=== PATIENT | female | born 1950 | race Caucasian/White ===

== ENCOUNTER 2017-03-04 11:58 | Emergency (ER) | payer MEDICAID ==
[2017-06-03 14:52] VITALS: BMI 27.3
== END 2017-03-04 13:55 | disposition home or self-care (01) ==
LOC: D.ER 11:58
DX: K04.7 Periapical abscess without sinus (principal); M79.672 Pain in left foot; M79.671 Pain in right foot

== ENCOUNTER 2017-04-30 14:14 | Emergency (ER) | payer MEDICARE ==
[2017-06-03 14:52] VITALS: BMI 27.3
== END 2017-04-30 16:16 | disposition home or self-care (01) ==
LOC: D.ER 14:14
DX: K02.9 Dental caries, unspecified (principal); K08.89 Other specified disorders of teeth and supporting structures; M79.7 Fibromyalgia; K59.00 Constipation, unspecified

== ENCOUNTER 2017-05-13 03:54 | Emergency (ER) | payer MEDICARE ==
[2017-05-13 04:33] LABS: BASOPHILS 0.3 % (0-2); EOSINOPHILS 3.1 % (0-7); HEMATOCRIT 39.8 % (36.0-48.0); LYMPHOCYTES 22.1 % (15-50); MCH 31.3 pg (26.0-34.0); MCHC 32.7 g/dL (31.0-37.0); MCV 95.9 fL (80.0-100.0); NEUTROPHILS 64.5 % (40-80); PLATELET COUNT 210 10x3/uL (130-400); RBC 4.15 10x6/uL (4.00-5.40); RDW 12.8 % (11.5-14.5); WBC 6.5 10x3/uL (4.8-10.8)
[2017-05-13 04:49] LABS: ALBUMIN 3.4 g/dL (3.4-5.0); ALKALINE PHOSPHATASE 75 U/L (46-116); ALT (SGPT) 15 U/L (10-68); AMYLASE - SERUM 39 U/L (25-115); BILIRUBIN - TOTAL 0.14 mg/dL (0.2-1.3); CALC OSMOLALITY 288 mosm/kg (275-300); CALCIUM 8.7 mg/dL (8.5-10.1); CARBON DIOXIDE 25.2 mmol/L (21.0-32.0); CHLORIDE - SERUM 108 mmol/L (98-107); CREATININE - SERUM 0.8 mg/dL (0.6-1.3); GLUCOSE 141 mg/dL (74-106); LIPASE 126 U/L (73-393); POTASSIUM - SERUM 3.5 mmol/L (3.5-5.1); PROTEIN - SERUM 6.1 g/dL (6.4-8.2); SODIUM 144 mmol/L (136-145); UREA NITROGEN 12 mg/dL (7-18); eGFR NON AFRICAN AMERICAN 76 mL/min (90-120)
[2017-05-13 05:36] LABS: APPEARANCE CLEAR (CLEAR); BACTERIA MANY /hpf (NONE SEEN); BILIRUBIN NEGATIVE (NEGATIVE); COLOR YELLOW (YELLOW); EPITHELIAL CELLS 0-5 /hpf (0-5); GLUCOSE NEGATIVE (NEGATIVE); KETONE NEGATIVE (NEGATIVE); NITRITE POSITIVE (NEGATIVE); PROTEIN NEGATIVE (NEGATIVE); RED CELLS - URINE NONE SEEN /hpf (0-5); SPECIFIC GRAVITY 1.015 (1.005-1.020); UROBILINOGEN NORMAL (NORMAL); WHITE CELLS - URINE 0-5 /hpf (0-5)
[2017-05-13 05:59] LABS: CKMB 1.2 U/L (0.0-3.6); CREATINE KINASE 45 UL (21-215); TROPONIN-I < 0.017 ng/mL (0.000-0.060)
[2017-06-03 14:52] VITALS: BMI 27.3
== END 2017-05-13 06:42 | disposition home or self-care (01) ==
LOC: D.ER 03:54
PROVIDERS: Family Medicine
DX: K21.9 Gastro-esophageal reflux disease without esophagitis (principal); N39.0 Urinary tract infection, site not specified; K59.00 Constipation, unspecified; I45.10 Unspecified right bundle-branch block

== ENCOUNTER 2017-05-23 18:58 | Emergency (ER) | payer MEDICARE ==
[2017-05-23 19:45] LABS: APPEARANCE CLEAR (CLEAR); COLOR YELLOW (YELLOW)
[2017-05-23 19:46] LABS: BILIRUBIN NEGATIVE (NEGATIVE); GLUCOSE NEGATIVE (NEGATIVE); KETONE NEGATIVE (NEGATIVE); NITRITE NEGATIVE (NEGATIVE); PROTEIN TRACE mg/dL (NEGATIVE); UROBILINOGEN NORMAL (NORMAL)
[2017-05-23 19:52] LABS: EPITHELIAL CELLS 0-5 /hpf (0-5); RED CELLS - URINE 0-5 /hpf (0-5); WHITE CELLS - URINE 25-50 /hpf (0-5)
[2017-05-23 19:53] LABS: BACTERIA FEW /hpf (NONE SEEN)
[2017-05-23 20:01] LABS: BASOPHILS 0.1 % (0-2); EOSINOPHILS 2.1 % (0-7); HEMATOCRIT 42.5 % (36.0-48.0); HEMOGLOBIN 13.9 g/dL (12-16); IMMATURE GRANULOCYTES 0.3 % (0-5); LYMPHOCYTES 12.3 % (15-50); MCHC 32.7 g/dL (31.0-37.0); MCV 94.9 fL (80.0-100.0); MEAN PLATELET VOLUME 11.9 fL (7.4-10.4); MONOCYTES 8.9 % (2-11); NEUTROPHILS 76.3 % (40-80); PLATELET COUNT 175 10x3/uL (130-400); RBC 4.48 10x6/uL (4.00-5.40); RDW 12.9 % (11.5-14.5); WBC 11.5 10x3/uL (4.8-10.8)
[2017-05-23 20:17] LABS: ALKALINE PHOSPHATASE 85 U/L (46-116); ALT (SGPT) 14 U/L (10-68); AMYLASE - SERUM 42 U/L (25-115); BILIRUBIN - TOTAL 0.36 mg/dL (0.2-1.3); CALC OSMOLALITY 279 mosm/kg (275-300); CALCIUM 9.4 mg/dL (8.5-10.1); CARBON DIOXIDE 30.8 mmol/L (21.0-32.0); CHLORIDE - SERUM 100 mmol/L (98-107); CREATININE - SERUM 0.8 mg/dL (0.6-1.3); GLUCOSE 123 mg/dL (74-106); LIPASE 111 U/L (73-393); POTASSIUM - SERUM 4.1 mmol/L (3.5-5.1); SODIUM 140 mmol/L (136-145); UREA NITROGEN 13 mg/dL (7-18); eGFR NON AFRICAN AMERICAN 76 mL/min (90-120)
[2017-06-03 14:52] VITALS: BMI 27.3
== END 2017-05-23 21:13 | disposition home or self-care (01) ==
LOC: D.ER 18:58
PROVIDERS: Emergency Medicine
DX: N39.0 Urinary tract infection, site not specified (principal); R10.9 Unspecified abdominal pain; K21.9 Gastro-esophageal reflux disease without esophagitis

== ENCOUNTER 2017-05-27 16:00 | Emergency (ER) | payer MEDICARE ==
[2017-05-27 17:31] LABS: BASOPHILS 0 % (0-2); EOSINOPHILS 0.4 % (0-7); HEMATOCRIT 42.9 % (36.0-48.0); HEMOGLOBIN 14.4 g/dL (12-16); IMMATURE GRANULOCYTES 0.3 % (0-5); MCH 30.6 pg (26.0-34.0); MCHC 33.6 g/dL (31.0-37.0); MCV 91.1 fL (80.0-100.0); MEAN PLATELET VOLUME 11.6 fL (7.4-10.4); MONOCYTES 6.5 % (2-11); NEUTROPHILS 87.8 % (40-80); RBC 4.71 10x6/uL (4.00-5.40); RDW 12.8 % (11.5-14.5); WBC 13.7 10x3/uL (4.8-10.8)
[2017-05-27 17:37] LABS: PLATELET COUNT 211 10x3/uL (130-400)
[2017-05-27 17:46] LABS: ALBUMIN 2.5 g/dL (3.4-5.0); ANION GAP 13.3 mmol/L (8-16); BILIRUBIN - TOTAL 0.5 mg/dL (0.2-1.3); CALCIUM 9.5 mg/dL (8.5-10.1); CARBON DIOXIDE 30.1 mmol/L (21.0-32.0); POTASSIUM - SERUM 3.4 mmol/L (3.5-5.1); PROTEIN - SERUM 7.4 g/dL (6.4-8.2)
[2017-05-27 18:16] LABS: APPEARANCE HAZY (CLEAR); BACTERIA MANY /hpf (NONE SEEN); BILIRUBIN NEGATIVE (NEGATIVE); COLOR BROWN (YELLOW); EPITHELIAL CELLS 0-5 /hpf (0-5); GLUCOSE NEGATIVE (NEGATIVE); KETONE NEGATIVE (NEGATIVE); NITRITE NEGATIVE (NEGATIVE); PROTEIN TRACE mg/dL (NEGATIVE); RED CELLS - URINE 0-5 /hpf (0-5); SPECIFIC GRAVITY 1.015 (1.005-1.020); UROBILINOGEN NORMAL (NORMAL)
[2017-06-03 14:52] VITALS: BMI 27.3
== END 2017-05-27 18:44 | disposition home or self-care (01) ==
LOC: D.ER 16:00
PROVIDERS: Emergency Medicine
DX: N39.0 Urinary tract infection, site not specified (principal); R11.10 Vomiting, unspecified; K21.9 Gastro-esophageal reflux disease without esophagitis

== ENCOUNTER 2017-05-28 17:06 | Emergency (ER) | payer MEDICARE ==
[2017-06-03 14:52] VITALS: BMI 27.3
== END 2017-05-28 18:30 | disposition home or self-care (01) ==
LOC: D.ER 17:06
DX: Z76.5 Malingerer [conscious simulation] (principal); Z59.0 Homelessness; N39.0 Urinary tract infection, site not specified; K21.9 Gastro-esophageal reflux disease without esophagitis

== ENCOUNTER 2017-05-31 14:08 | Inpatient (IN) | payer MEDICARE | END 2017-06-20 10:40 | DRG 885 | LOC: D.ER 14:08 → D.PSYCH 22:37 | DX: F25.0 Schizoaffective disorder, bipolar type (principal); N39.0 Urinary tract infection, site not specified; G30.9 Alzheimer's disease, unspecified; F02.80 Dementia in other diseases classified elsewhere, unspecified severity, without behavioral disturbance, psychotic disturbance, mood disturbance, and anxiety; K21.9 Gastro-esophageal reflux disease without esophagitis; E78.00 Pure hypercholesterolemia, unspecified; I10 Essential (primary) hypertension; G62.9 Polyneuropathy, unspecified; E78.5 Hyperlipidemia, unspecified; F42.9 Obsessive-compulsive disorder, unspecified; K59.00 Constipation, unspecified; B37.3 Candidiasis of vulva and vagina; A60.00 Herpesviral infection of urogenital system, unspecified; E55.9 Vitamin D deficiency, unspecified; F41.8 Other specified anxiety disorders ==

== ENCOUNTER 2018-12-29 14:21 | Inpatient (IN) | payer MEDICARE ==
[~2018-12-29] VITALS: Ht 170.2 cm; Wt 91.9 kg
[~2018-12-29 14:21] MED LIST: ANUSOL-HC 2.5%30 GM RC; ARICEPT5 MG PO; FLORAJEN3 CAPS460 MG PO; LINZESS145 MCG PO; LYRICA75 MG PO; MIRALAX17 GM PO; PEPCID20 MG PO; PERIDEX480 ML PO; PROTONIX40 MG PO; VALTREX500 MG PO; VITAMIN D5000 UNIT PO
[2018-12-29 16:36] VITALS: BP 124/71
[2018-12-29] MEDS ORDERED: VITAMIN B-121000 MCG PO (19:34)
[2018-12-29] MEDS ORDERED: BACLOFEN10 MG PO (19:35)
--- NOTE | 2018-12-29 19:35 | NUR ---
ADMITTED TO [facility] AT [facility] VIA AMBULANCE WITH EMS FROM [facility]. PATIENT IS ABLE TO AMBULATE INDEPENDENTLY. ADMITTED FOR AGITATION AND HITTING OF STAFF, REFUSING REDIRECTION AND TAKING HER MEDICATIONS. CODE STATUS= FULL CODE CODEWORD= CURTIS. SHE HAS A HISTORY OF SCHITZOPHRENIA. WILL CONTINUE TO MONITOR CLOSEY.
[2018-12-29] MEDS ORDERED: CHLOROPHYLL PO (19:38)
[2018-12-29] MEDS ORDERED: VITAMIN D5000 UNIT PO (19:40)
[2018-12-29] MEDS ORDERED: CYMBALTA60 MG PO (19:50)
[2018-12-29] MEDS ORDERED: DIFLUCAN150 MG PO (19:51)
[2018-12-29] MEDS ORDERED: FOLIC ACID1 MG PO (19:54)
[2018-12-29] MEDS ORDERED: CLARITIN5 MG/5 ML PO (19:59)
[2018-12-29] MEDS ORDERED: MELATONIN 3 MG1 TAB PO (19:59)
[2018-12-29] MEDS ORDERED: NEURONTIN600 MG PO (20:00)
[2018-12-29] MEDS ORDERED: OXYBUTYNIN CHLOR5 M1 PO (20:01)
[2018-12-29] MEDS ORDERED: SENNA LAXATIVE8.6 MG PO (20:02)
[2018-12-29] MEDS ORDERED: ULTRAM50 MG PO (20:03)
[2018-12-29] MEDS ORDERED: TRAZODONE HCL150 MG PO (20:04)
[2018-12-29] MEDS ORDERED: ACETAMINOPHEN325 MG PO (20:05)
--- NOTE | 2018-12-29 21:00 | NUR ---
RECEIVED IN HALLWAY. SITTING IN A RECLINING CHAIR WITH PEERS AT HER SIDE. MAKES RUDE COMMENTS AT TIMES. COOPERATIVE WITH CARE. REDIRECT AND REORIENT NEEDED. CONTINUES TO SIT WITH PEERS. CONTINUE PLAN OF CARE
[2018-12-29 21:02] VITALS: BP 126/78
--- NOTE | 2018-12-30 00:53 | NUR ---
PATIENT STATES ANXIETY. REQUEST SOMETHING TO RELAX. PRN ATIVAN 0.5 MG PO GIVEN FOR ANXIETY.
[2018-12-30 06:00] LABS: BASOPHILS 0.3 % (0-2); EOSINOPHILS 2.4 % (0-7); HEMOGLOBIN 12.8 g/dL (12-16); IMMATURE GRANULOCYTES 0.1 % (0-5); LYMPHOCYTES 24.6 % (15-50); MCH 31.1 pg (26.0-34.0); MCHC 33.7 g/dL (31.0-37.0); MCV 92.2 fL (80.0-100.0); MONOCYTES 10.5 % (2-11); NEUTROPHILS 62.1 % (40-80); RBC 4.12 10x6/uL (4.00-5.40); RDW 13.3 % (11.5-14.5); WBC 7.4 10x3/uL (4.8-10.8)
[2018-12-30 06:08] LABS: PLATELET COUNT 195 10x3/uL (130-400)
[2018-12-30 06:50] LABS: ALBUMIN 3.3 g/dL (3.4-5.0); ALKALINE PHOSPHATASE 88 U/L (46-116); ALT (SGPT) 26 U/L (10-68); BILIRUBIN - TOTAL 0.39 mg/dL (0.2-1.3); CALC OSMOLALITY 289 mosm/kg (275-300); CALCIUM 9.1 mg/dL (8.5-10.1); CARBON DIOXIDE 29.2 mmol/L (21.0-32.0); CHLORIDE - SERUM 107 mmol/L (98-107); CHOL - HDL RATIO 4.8 ratio (2.3-4.1); CHOLESTEROL, TOTAL 188 mg/dL (0-200); CREATININE - SERUM 0.9 mg/dL (0.6-1.3); GLUCOSE 101 mg/dL (74-106); HDL CHOLESTEROL 39 mg/dL (32-96); LDL CHOLESTEROL 131 mg/dL (0-100); LDL-HDL RATIO 3.4 ratio (1.5-3.5); POTASSIUM - SERUM 3.9 mmol/L (3.5-5.1); PROTEIN - SERUM 6.7 g/dL (6.4-8.2); SODIUM 144 mmol/L (136-145); THYROID STIMULATING HORMONE 1.37 uIU/mL (0.36-3.74); TRIGLYCERIDE 91 mg/dL (30-200); UREA NITROGEN 21 mg/dL (7-18); eGFR NON AFRICAN AMERICAN 66 mL/min (90-120)
[2018-12-30 08:30] VITALS: BP 96/56
[2018-12-30 10:48] VITALS: BMI 30.1
[2018-12-30 12:07] VITALS: BP 136/67; Ht 170.2 cm; Wt 91.9 kg
--- NOTE | 2018-12-30 18:24 | NUR ---
IS ORIENTED AND COMPLIANT WITH STAFF.VERY NEEDY.COMPLIANT WITH MEDS.VISITS WITH PEERS.WILL CONTINUE WITH CURRENT PLAN OF CARE,MONITOR FOR CHANGES AND SAFETY.
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
[2018-12-30 20:46] VITALS: BP 151/87
--- NOTE | 2018-12-30 21:00 | NUR ---
PATIENT TOLERATED PRN WELL. RESTING, WILL MONITOR AND FOLLOW POC
[2018-12-31 07:14] LABS: RAPID PLASMA REAGIN Non Reactive (Non Reactive)
[2018-12-31 08:30] VITALS: BP 125/80
--- NOTE | 2018-12-31 10:54 | NUR ---
B) The patient is awake, but she keeps dozing off and she has made multiple requests this am. She interacts well with staff and peers. She says she is here to get her meds adjusted. I) Provide prescribed meds. R) The patient is compliant with meds and unit milieu. She has not shown any aggression this am. P) Continue POC.
--- NOTE | 2018-12-31 13:07 | NUR ---
TEAM TREATMENT REVIEW DIET: Regular diet PO INTAKE: 57% x 3 meals, 100% x 1 snack WT: 192 lbs BM: x 1 on 12/30 MEDS: Sennokot LABS: BUN- 21(H), LDL- 131(H), Vit B12- 1164(H) GOALS: PO intake > 75%, BM q 3 days, stable wt Will continue to monitor closely Clinical Dietitian following
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
[2018-12-31 20:48] VITALS: BP 105/66
--- NOTE | 2018-12-31 23:01 | NUR ---
B) Patient is alert and oriented to person and place, and time, calm and cooperative this shift, I) Administered scheduled medications as ordered, monitored for safety R) medication compliant, follows unit milieu, social with peers and staff P) Continue plan of care.
[2019-01-01 08:51] VITALS: BP 115/55
--- NOTE | 2019-01-01 10:54 | NUR ---
PATIENT IS DOZING OFF IN CHAIR. PT IS ORIENTED TO PERSON, PLACE AND TIME. CONFUSION NOTED AT TIMES. INTERACTS WITH STAFF AND PEERS. PT IS CALM AND COOPERATIVE AT THIS. NO AGGERSSION NOTED AT THIS TIME. COMPLIANT WITH MEDICATIONS, ASSESSMENTS AND VITALS. WILL CONT PLAN OF CARE.
--- NOTE | 2019-01-01 16:06 | PN ---
PATIENT:CYRIL CEJA MEDICAL RECORD: [id number] LOCATION:[facility] ADMISSION DATE: 12/29/18 PROGRESS NOTE DATE OF SERVICE: 12/31/2018 SUBJECTIVE: The patient's case was discussed with staff. She has no new complaint. OBJECTIVE: The patient denies that she would seek to harm herself or others. She is tolerating her medicines well. ASSESSMENT: No change in diagnoses. PLAN: The patient is taking Neurontin for her neuropathy, which continues to bother her. She is taking a reasonable dose of Cymbalta as well. I am going to start her on a low dose of Trilafon to assist with her thought disorganization and paranoia. She will be monitored for clinical changes associated with it. Her long-term prognosis is guarded. TRANSINT:[id number] Voice Confirmation ID: [id number] DOCUMENT ID: [id number] JULIETH AGUILA MD at 1606 CC: [id number] DICTATION DATE: 12/31/18 1533 CLAY MOLDER: 12/31/18 1700 ADM IN [place] [id number] [place] [address]
[2019-01-01 20:00] VITALS: BP 98/47
--- NOTE | 2019-01-02 04:25 | NUR ---
B) Patient is alert and oriented to person, place, and time, calm and cooperative this shift, I) Administered scheduled medications as ordered, PRN Tylenol 650 mg PO given at 04:01 for pain R) Mediation compliant, resting now quietly in her bed, P) Continue plan of care.
--- NOTE | 2019-01-02 09:52 | NUR ---
RECEIVED PT IN DINING ROOM FOR B'FAST, ALERT, CALM, COOPERATIVE, AGREEABLE WITH STAFF SUGGESTIONS. MEDS ADMIN PER ORDERS WITH COMPLETE MED COMPLIANCE NOTED. CONT POC DIRECTED.
[2019-01-02 10:41] VITALS: BP 119/67
--- NOTE | 2019-01-02 12:25 | PN ---
PATIENT:CYRIL CEJA MEDICAL RECORD: [id number] LOCATION:[facility] ADMISSION DATE: 12/29/18 PROGRESS NOTE DATE OF SERVICE: 01/01/2019 SUBJECTIVE: The patient's case was discussed with staff. She has no new complaint. OBJECTIVE: The patient is in good behavioral control. She has had no aggressive behaviors. She is tolerating her medicines well. ASSESSMENT: No change in diagnoses. PLAN: Supportive and educational interventions were made. Long-term prognosis is guarded. TRANSINT:[id number] Voice Confirmation ID: [id number] DOCUMENT ID: [id number] JULIETH AGUILA MD at 1225 CC: [id number] DICTATION DATE: 01/01/19 170 CONTRACT FORESTER: 01/01/19 2204 ADM IN [place] [place] [address]
[2019-01-02 20:16] VITALS: BP 143/76
--- NOTE | 2019-01-02 23:22 | NUR ---
B.) PT IS ALERT AND ORIENTED X'S 4. PT IS ANXIOUS AT TIMES. SHE IS PLEASANT WITH STAFF AND PEERS. I.) PROVIDED PM MEDICATIONS. R.) COMPLIANT WITH ALL MEDICATIONS. P.) CONTINUE PLAN OF CARE
--- NOTE | 2019-01-02 23:31 | NUR ---
PT CLAIMS SHE IS FEELING ANXIOUS AND RESTLESS. SHE REQUEST PRN ATIVAN 0.5MG IM PRESCRIBED.
[2019-01-03 07:00] VITALS: BP 139/83
--- NOTE | 2019-01-03 16:34 | NUR ---
RECEIVED PT IN DINING ROOM FOR B'FAST, ALERT, CALM, COOPERATIVE. MEDS ADMIN PER ORDERS WITH COMPLETE MED COMPLIANCE NOTED. CONT POC DIRECTED.
[2019-01-03 20:00] VITALS: BP 125/73
--- NOTE | 2019-01-03 22:56 | NUR ---
RECEIVED IN DAYROOM. SITTING IN CHAIR WITH PEERS AT HER SIDE. NO SIGNS OF AGGRESSION. CALM AND COOPERATIVE WITH CARE AND ASSESSMENT. REDIRECT AND REORIENT NEEDED. RESTING IN BED WITH EYES CLOSED AT THIS TIME. CONTINUE PLAN OF CARE
[2019-01-04 08:00] VITALS: BP 113/64
--- NOTE | 2019-01-04 10:16 | PN ---
PATIENT:CYRIL CEJA MEDICAL RECORD: [id number] LOCATION:[facility] ADMISSION DATE: 12/29/18 PROGRESS NOTE DATE OF SERVICE: 01/02/2019 SUBJECTIVE: The patient's case was discussed with staff. She has no new complaint. OBJECTIVE: The patient is cooperative and pleasant, but somewhat withdrawn. She has had no significant mood lability. ASSESSMENT: No change in diagnoses. PLAN: Current medicines have been reviewed and will be maintained. Long-term prognosis is guarded. TRANSINT:[id number] Voice Confirmation ID: [id number] DOCUMENT ID: [id number] JULIETH AGUILA MD at 1016 CC: [id number] DICTATION DATE: 01/02/19 1231 LABORATORY TECH: 01/02/19 1242 ADM IN [place] [id number] [place] [address]
--- NOTE | 2019-01-04 10:16 | PN ---
PATIENT:CYRIL CEJA MEDICAL RECORD: [id number] LOCATION:[facility] ADMISSION DATE: 12/29/18 PROGRESS NOTE DATE OF SERVICE: 01/03/2019 SUBJECTIVE: The patient's case was discussed with staff. She has no new complaint. OBJECTIVE: The patient denies intent to harm herself or others. She was anxious last night and did receive some p.r.n. Ativan. ASSESSMENT: No change in diagnoses. PLAN: Brief supportive and educational interventions were made. Long-term prognosis is guarded. TRANSINT:[id number] Voice Confirmation ID: [id number] DOCUMENT ID: [id number] JULIETH AGUILA MD at 1016 CC: [id number] DICTATION DATE: 01/03/19914 PAPERBACK MACHINE OPERATOR: 01/03/19 1005 ADM IN [place] [id number] [place] [address]
[2019-01-04] MEDS ORDERED: BACLOFEN10 MG PO (12:20)
[2019-01-04] MEDS ORDERED: MOBIC7.5 MG PO (12:21)
[2019-01-04] MEDS ORDERED: PERPHENAZINE2 MG PO (12:21)
--- NOTE | 2019-01-04 15:06 | NUR ---
PT BECAME AGGRESSIVE WITH STAFF, POURING A GLASS OF TEA INTO MHT'S FACE AND THROWING A HARDBACK BOOK STRIKING STAFF IN ABDOMEN. ATIVAN 0.5 MG ADMIN IM
--- NOTE | 2019-01-04 17:26 | NUR ---
RECEIVED PATIENT IN DINING ROOM AT B'FAST TIME, ALERT, CALM, COOPERATIVE, MEDS ADMIN PER ORDERS WITH COMPLETE MED COMPLIANCE NOTED. COOPERATIVE WITH PLAN OF CARE. CONT POC DIRECTED.
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
--- NOTE | 2019-01-04 18:56 | NUR ---
PATIENT HAS VOIDED ON THE FLOOR TWICE THIS SHIFT, ONCE IN DAYROOM AND ONCE IN DINING ROOM.
--- NOTE | 2019-01-04 22:37 | NUR ---
RECEIVED IN DINING AREA, SITTING IN A CHAIR AT TABLE BY HERSELF. CALM AND COOPERATIVE WITH CARE AND ASSESSMENT. NO SIGNS OF AGGRESSION. REDIRECT AND REORIENT NEEDED. RESTING IN BED WITH EYES CLOSED AT THIS TIME. CONTINUE PLAN OF CARE
[2019-01-05 00:24] VITALS: BP 145/100
[2019-01-05 08:19] VITALS: BP 115/76
--- NOTE | 2019-01-05 15:20 | PN ---
PATIENT:CYRIL CEJA MEDICAL RECORD: [id number] LOCATION:[facility] ADMISSION DATE: 12/29/18 PROGRESS NOTE DATE OF SERVICE: 01/04/2019 SUBJECTIVE: The patient's case was discussed with staff. She has no new complaint. OBJECTIVE: The patient denies intent to harm herself or others. She is tolerating her medicines well. ASSESSMENT: No change in diagnoses. PLAN: Current medicines have been reviewed and will be maintained. I anticipate she can be transitioned out of the hospital tomorrow if this level of improvement continues. TRANSINT:[id number] Voice Confirmation ID: [id number] DOCUMENT ID: [id number] JULIETH AGUILA MD at 1520 CC: [id number] DICTATION DATE: 01/04/19 1219 DIRECTOR OF DISTANCE LEARNING: 01/04/19 1232 ADM IN [id number] [place] [address]
--- NOTE | 2019-01-05 16:49 | NUR ---
B) Staff have stated that this patient is trying to lead groups without permission and she is answering questions in an inappropriate manner. When staff asked her if she showered. She said "Yes", but then she made a child like gesture "ya, ya, ya." I) Redirection is encouraged. Provide prescribed meds. R) The patient is compliant with meds. P) Continue POC.
--- NOTE | 2019-01-05 19:59 | NUR ---
RECEIVED IN DAYROOM. SITTING IN A WHEELCHAIR. KEEPING TO HERSELF. CALM AND COOPERATIVE WITH CARE AND ASSESSMENT. NO SIGNS OF AGGRESSION. ENCOURAGE TO EXPRESS NEEDS. CONTINUES TO SIT QUIETLY BY HERSELF. CONTINUE PLAN OF CARE
[2019-01-06 08:34] VITALS: BP 135/85
--- NOTE | 2019-01-06 08:59 | NUR ---
PT AM MEDS ADMINISTERED. PRN ATIVAN PO REQUESTED AND REC'D. WCTM.
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
[2019-01-06 20:00] VITALS: BP 148/73
--- NOTE | 2019-01-07 01:39 | NUR ---
B) Patient is alert and oriented to person, place and time, intrusive with staff, boundary testing and needy, medication seeking I) Administered scheduled medications as ordered, monitored for behaviors, R) Medication compliant, restless at times, P) Continue plan of care.
--- NOTE | 2019-01-07 10:00 | NUR ---
PATIENT IS SITTING AND SOCIALIZING WITH PEERS. PT IS FRIENDLY WITH STAFF AND PEERS. PT IS ORIENTED TO PERSON, PLACE AND TIME. INTRUSIVE WITH STAFF AND PATIENTS. PT CAN BE NEEDY AT TIMES. COMPLIANT WITH MEDS, ASSESSMENTS AND VITALS. PT CAN BE RESTLESS AT TIMES. AMBULATES PER SELF. WILL CONT PLAN OF CARE.
[2019-01-07 10:43] VITALS: BP 139/79
--- NOTE | 2019-01-07 13:37 | NUR ---
TEAM TREATMENT REVIEW: DIET: Regular Diet ALLERGY: Soy Beans PO INTAKE: 86% x 9 meals WT: 12/31-192 lbs; 01/03-196.2 lbs BM: x 1 on 01/07 MEDS: Folate, Vit D, Senokot LABS: BUN-21(H), Vit L24-8351(H), Vit D-14.4(L) GOALS: PO intake >/= 75%, BM q 3 days, labs WNL, Stable wt DHS Will continue to monitor closely Clinical Dietitian Following
--- NOTE | 2019-01-07 15:07 | PN ---
PATIENT:CYRIL CEJA MEDICAL RECORD: [id number] LOCATION:[facility] ADMISSION DATE: 12/29/18 PROGRESS NOTE DATE OF SERVICE: 01/06/2019 SUBJECTIVE: The patient's case was discussed with staff. She has no new complaint. OBJECTIVE: The patient was engaged in some attention seeking behavior today, smearing excrement on the wall and wetting her pants. When confronted about this by nursing staff, she indicated that it was not her fault. Interestingly, that was several hours before I saw her and she does not mention it and in fact she seems in every way euthymic and appropriate. This strongly indicates the presence of an underlying personality disorder, which is associated with her conditions. ASSESSMENT: No change in diagnoses. PLAN: The patient will be maintained on current medicines. I do not see much of an indication to change them since her mood state seems to be largely situationally driven and is apparently associated with whatever present stressors she is encountering. This is consistent with a personality disorder and is only treatable through long-term psychotherapy. TRANSINT:[id number] Voice Confirmation ID: [id number] DOCUMENT ID: [id number] JULIETH AGUILA MD at 1507 CC: [id number] DICTATION DATE: 01/06/19 1630 NIGHT CLERK: 01/06/19 2317 ADM IN [place] [id number] [place] [address]
[2019-01-07 20:14] VITALS: BP 133/59
--- NOTE | 2019-01-08 03:09 | NUR ---
B.) PT IS ALERT AND ORIENTED X4. SHE IS INTRUSIVE WITH STAFF AT TIMES. SHE CAN BE VERY INQUISITIVE. I.) REDIRECT NEEDED. PROVIDED PM MEDICATIONS. R.) COMPLIANT WITH ALL MEDICATIONS. P.) CONTINUE PLAN OF CARE
--- NOTE | 2019-01-08 08:34 | NUR ---
PATIENT SITTING IN A CHAIR BY NURSES STATION. RESP EVEN AND NONLABORED. PT CAN AMBULATE BUT AT TIMES WILL USE A WHEELCHAIR STATING SHE HURTS. PT IS ALERT AND ORIENTED TO PERSON, PLACE AND TIME. PT CAN BE FORGETFUL AT TIMES. NO BEHAVIOR NOTED FROM PREVIOUS SHIFT. PT IS COMPLIANT WITH ASSESSMENTS, MEDS AND VITALS. WILL CONT TO MONITOR FOR PAIN AND FALL RISK. WILL CONT PLAN OF CARE.
[2019-01-08 08:43] VITALS: BP 129/82
[2019-01-08 09:15] VITALS: BP 139/79
--- NOTE | 2019-01-08 16:02 | PN ---
PATIENT:CYRIL CEJA MEDICAL RECORD: [id number] LOCATION:[facility] ADMISSION DATE: 12/29/18 PROGRESS NOTE DATE OF SERVICE: 01/07/2019 SUBJECTIVE: The patient's case was discussed with staff. She has no new complaint. OBJECTIVE: The patient is in good behavioral control. She is eating and sleeping well. She has a euthymic mood. Thought processes are logical and goal directed. ASSESSMENT: Schizoaffective disorder. PLAN: The patient will be maintained on current medicines. Long-term prognosis is guarded. TRANSINT:[id number] Voice Confirmation ID: [id number] DOCUMENT ID: [id number] JULIETH AGUILA MD at 1602 CC: [id number] DICTATION DATE: 01/07/19 1548 IRRIGATION TEACHER: 01/07/19 2313 ADM IN [place] [id number] [place] [id number]
[2019-01-08 20:17] VITALS: BP 122/74
--- NOTE | 2019-01-08 20:24 | NUR ---
PATIENT IS ALERT. SHE INTERRUPTS CONVERSATIONS AT TIMES, SHE OVER STEPS BOUNDARIES AT TIMES. COMPLIANT WITH MEDS. WILL FOLLOW POC
[2019-01-09 07:30] VITALS: BP 133/78
[2019-01-09 20:00] VITALS: BP 147/74
--- NOTE | 2019-01-09 20:00 | NUR ---
REC'D SITTING IN THE DAYROOM. PATIENT SITS AND WILL TELL STAFF WHEN SHE FEELS ANOTHER PATIENT NEEDS SOMETHING DOME. INTRUSSIVE. WILL CALL OUT FOR THE NURSE AND WHEN ASKED WHAT SHE NEEDS SHE WILL SAY SO AND SO NEEDS SOMETHING. AMBULATORY BUT OFTEN WILL USE A WHEELCHAIR. ADMINISTER MEDS PER ORDERS Q SHIFT AND MONITOR COMPLIANCE. REDIRECT FOR INTRUSSIVE BEHAVIORS. MED COMPLIANT AND TAKES MEDS WHOLE HOWEVER WANTED NURSE TO CRUSH THEM FOR HER TONIGHT. INSTRUCTED SHE IS CAPABLE OF SWALLOWING PILLS. TOOK MEDS WITHOUT DIFFICULTY. CONTINUES TO TELL STAFF WHEN THEY NEED TO HELP OTHERS. CONTINUE POC AND PROVIDE SAFE ENVIRONMENT.
[2019-01-10 08:14] VITALS: BP 106/68
--- NOTE | 2019-01-10 11:06 | NUR ---
B) The patient is awake and alert, she has not had any aggressive behaviors today. She is hyperverbal and she is attention seeking. She also likes to collect items like spoons, napkins, books, and magazines. I) The patient is compliant with meds. She needs redirection. R) The patient is compliant with meds. P) Continue POC.
--- NOTE | 2019-01-10 11:29 | PN ---
PATIENT:CYRIL CEJA MEDICAL RECORD: [id number] LOCATION:[facility] ADMISSION DATE: 12/29/18 PROGRESS NOTE DATE OF SERVICE: 01/09/2019 SUBJECTIVE: The patient's case was discussed with staff. She has no new complaint. OBJECTIVE: The patient is in good behavioral control with limited insight about her condition. She tolerates her medicines well. ASSESSMENT: No change in diagnoses. PLAN: Current medicines have been reviewed. I anticipate she can be transitioned out of the hospital on Friday. TRANSINT:[id number] Voice Confirmation ID: [id number] DOCUMENT ID: [id number] JULIETH AGUILA MD at 1129 CC: [id number] DICTATION DATE: 01/09/19 1313 SAMPLE WORKER: 01/09/19 1357 ADM IN [place] [id number] [place] [address]
[2019-01-10 20:00] VITALS: BP 143/96
--- NOTE | 2019-01-10 20:47 | NUR ---
RECEIVED IN DAYROOM. SITTING IN A CHAIR WITH PEERS AT HER SIDE. CALM AND COOPERATIVE WITH CARE AND ASSESSMENT. NOT ARGUMENTATIVE WITH PM. REDIRECT AND REORIENT NEEDED. CONTINUES TO SIT CALMLY IN CHAIR. CONTINUE PLAN OF CARE
--- NOTE | 2019-01-11 07:30 | NUR ---
PT IS ALERT AND ORIENTED X4. CALM AND COOPERATIVE WITH ASSESSMENT. NO SI NOTED OR VOICED. PT DENIES ANY SI AT THIS TIME. MED COMPLIANT. WILL CPOC.
[2019-01-11 08:00] VITALS: BP 136/83
--- NOTE | 2019-01-11 13:14 | NUR ---
PT DISCHARGED TO [facility]. ALL PAPERWORK FAXED AND COPY SENT WITH HOSE HANDLER. PT S/SX OF DISTRESS OR DISCOMFORT NOTED AT THIS TIME.
--- NOTE | 2019-01-11 15:00 | PN ---
PATIENT:CYRIL CEJA MEDICAL RECORD: [id number] LOCATION:[facility] ADMISSION DATE: 12/29/18 PROGRESS NOTE DATE OF SERVICE: 01/10/2019 SUBJECTIVE: The patient's case was discussed with staff. She has no new complaint. OBJECTIVE: The patient will be transitioned out of the hospital tomorrow. Her long-term prognosis is guarded. TRANSINT:[id number] Voice Confirmation ID: [id number] DOCUMENT ID: [id number] JULIETH AGUILA MD at 1500 CC: [id number] DICTATION DATE: 01/10/19 1141 TECHNICAL ENGINEER: 01/10/19 1248 DIS IN 01/11/19 [id number] [place] [address]
--- NOTE | 2019-01-12 09:25 | PN ---
PATIENT:CYRIL CEJA MEDICAL RECORD: [id number] LOCATION:[facility]112 ADMISSION DATE: 12/29/18 PROGRESS NOTE DATE OF SERVICE: 01/11/2019 SUBJECTIVE: The patient's case was discussed with staff. She has no new complaint. OBJECTIVE: The patient is in good behavioral control. She has no active thoughts of harming herself or others. She does tolerate her medicines well. ASSESSMENT: No change in diagnoses. PLAN: The patient will be transitioned out of the hospital today. Her long-term prognosis is guarded. TRANSINT:[id number] Voice Confirmation ID: [id number] DOCUMENT ID: [id number] JULIETH AGUILA MD at 0925 CC: [id number] DICTATION DATE: 01/11/19 1614 MUNICIPAL BOND TRADER: 01/11/192125 DIS IN 01/11/19 [id number] [place] [address]
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
== END 2019-01-11 13:05 | DRG 57 ==
LOC: D.PSYCH 14:21
PROVIDERS: ADMIT Psychiatry & Neurology Psychiatry; ATTEND Psychiatry & Neurology Psychiatry
DX: G30.9 Alzheimer's disease, unspecified (principal); F02.81 Dementia in other diseases classified elsewhere, unspecified severity, with behavioral disturbance; N39.0 Urinary tract infection, site not specified; F25.0 Schizoaffective disorder, bipolar type; K21.9 Gastro-esophageal reflux disease without esophagitis; I10 Essential (primary) hypertension; E78.5 Hyperlipidemia, unspecified; M19.90 Unspecified osteoarthritis, unspecified site; A60.00 Herpesviral infection of urogenital system, unspecified; G62.9 Polyneuropathy, unspecified; F41.8 Other specified anxiety disorders; R53.1 Weakness; E55.9 Vitamin D deficiency, unspecified; K59.00 Constipation, unspecified; G47.00 Insomnia, unspecified; B37.9 Candidiasis, unspecified; R30.0 Dysuria; E53.8 Deficiency of other specified B group vitamins; J30.9 Allergic rhinitis, unspecified